=== PATIENT | male | born 1995 | race Caucasian/White ===

== ENCOUNTER 2016-12-07 20:18 | Emergency (ER) | payer OTHER ==
[~2016-12-07] VITALS: Wt 114.5 kg
[2016-12-07] MEDS ORDERED: ONDANSETRON 4 MG INJ IV STA (21:03)
[2016-12-07] MEDS ORDERED: HYDROmorphONE 1 MG/ML SYG IV STA (21:03)
[2016-12-07] MEDS ORDERED: KETAMINE 500 MG INJ IV STA ×2 (21:03→21:48)
[2016-12-07] MEDS ORDERED: PROPOFOL 200 MG INJ IV STA ×2 (21:03→21:48)
--- NOTE | 2016-12-07 22:13 | ERD ---
ER Documentation Chief Complaint Date/Time DATE: 12/07/16 TIME: 22:09 Chief Complaint Pt injured Left arm Possible dislocation HPI 21-year-old male who states that he injured his left shoulder approximately 1-2 weeks ago. While playing basketball today he states that he injured his arm and feels like it might be dislocated. He describes moderate pain to left shoulder with limited range of motion. He is left-hand dominant. ROS All systems reviewed and are negative except as per history of present illness. Medications Home Meds Active Scripts Ondansetron (Ondansetron Odt) 4 Mg Tab.rapdis, 4 MG PO Q6H Y for NAUSEA AND/OR VOMITING, #10 TAB Prov:MARY ALICE NAZARIO MD 12/07/16 Ibuprofen* (Motrin*) 800 Mg Tab, 800 MG PO Q6H Y for PAIN AND OR ELEVATED TEMP, #30 TAB Prov:MARY ALICE NAZARIO MD 12/07/16 Hydrocodone/Acetaminophen (Thompson 10-325 Tablet) 1 Each Tablet, 1 TAB PO Q6H Y for PAIN, #7 TAB Prov:MARY ALICE NAZARIO MD 12/07/16 Reported Medications [None] No Conflict Check 03/28/10 Allergies Allergies: Coded Allergies: No Known Drug Allergies (Verified Allergy, Mild, 03/28/10) PMhx/Soc Medical and Surgical Hx: pt denies Medical Hx, pt denies Surgical Hx History of Surgery: No Anesthesia Reaction: No Hx Neurological Disorder: No Hx Respiratory Disorders: No Hx Cardiac Disorders: No Hx Psychiatric Problems: No Hx Miscellaneous Medical Probl: No Hx Alcohol Use: No Hx Substance Use: No Hx Tobacco Use: No Smoking Status: Never smoker FmHx Family History: No diabetes Physical Exam Vitals Vital Signs Date Time Temp Pulse Resp B/P Pulse Ox O2 Delivery O2 Flow Rate FiO2 12/07/16 21:48 2 12/07/16 21:20 100 4.0 12/07/16 20:48 99.9 88 20 160/90 100 Physical Exam General: Well developed, well nourished, no acute distress Head: Normocephalic, atraumatic. Eyes: Pupils equally reactive, EOM intact ENT: Moist mucous membranes Neck: Supple, no lymphadenopathy Respiratory: Lungs clear bilaterally, no distress Cardiovascular: RRR, no murmurs, rubs, or gallops Abdominal: Soft, non-tender, non-distended, no peritoneal signs : Deferred MSK: Squaring of the left shoulder. Limited range of motion secondary to pain. 2+ radial and ulnar pulses. Radial, median, ulnar, axillary nerves are intact. Neurologic: Alert and oriented, moving all extremities, normal speech, no focal weakness, no cerebellar signs Skin: No rash Psych: Normal mood Results 24 hrs Current Medications Medications (Trade) Dose Ordered Sig/Macie Route PRN Reason Start Time Stop Time Status Last Admin Dose Admin Ketamine HCl (Ketalar) 55 mg ONCE STAT IV 12/07/16 21:03 12/07/16 21:06 DC Propofol (Diprivan) 55 mg ONCE STAT IV 12/07/16 21:03 12/07/16 21:06 DC Hydromorphone HCl (Dilaudid) 0.5 mg ONCE STAT IV 12/07/16 21:03 12/07/16 21:06 DC 12/07/16 21:20 Ondansetron HCl (Zofran Inj) 4 mg ONCE STAT IV 12/07/16 21:03 12/07/16 21:06 DC 12/07/16 21:20 Ketamine HCl (Ketalar) 40 mg ONCE STAT IV 12/07/16 21:48 12/07/16 21:50 DC Propofol (Diprivan) 40 mg ONCE STAT IV 12/07/16 21:48 12/07/16 21:50 DC Procedures/MDM EKG, MONITORS, & DIAGNOSTIC IMAGING: X-ray left shoulder: I reviewed and interpreted multiple views of the x-ray Bones: Anterior dislocation of the left shoulder Soft tissue: No evidence of foreign body X-ray left shoulder postreduction: I reviewed and interpreted multiple views of the x-ray Bones: Reduction of the prior anterior dislocation of the left shoulder, no fractures Soft tissue: No evidence of foreign body PROCEDURES: Procedural sedation note: The patient and/or family member was consented prior to procedure and understands the risks, benefits, alternatives. A document was signed and placed in the chart. ASA class: 1 Mallampati Score: 1 N.p.o. status: Greater than 5 hours Indication: Left shoulder dislocation Medications: Ketamine a total of 95 mg, Propofol a total of 95 mg, initial pressure 55 mg of each, gradual titration of another 20 mg of each and then another 20 mg of each. Time out was performed. Emergency airway equipment was placed to the patient's bedside. The patient was placed on supplemental oxygen. Respiratory therapy was available. The patient was placed on a clinical research monitor. The patient tolerated sedation well with no significant adverse events and no significant desaturations. I spent greater than 15 minutes of bedside time with this patient during sedation. Status post sedation the patient was arousable, protecting their airway, and well appearing. Closed reduction: The patient and/or family members were verbally consented for the procedure understanding the risks, benefits, alternatives. The document was signed and placed in the chart. Time out was performed. Indication: Left shoulder dislocation Location: Left shoulder Technique: Multiple techniques were used including downward traction and external rotation, traction and countertraction, scapular manipulation. The patient continued to have intermittent reduction in subluxation and dislocation. It appears that the anterior portion of the glenohumeral joint may be disrupted with ligamentous instability. Neurovascular exam: The patient was neurovascularly intact distal to the injury both prior to and status post closed reduction The patient had improvement in anatomic alignment, tolerated the procedure well without complications. MEDICAL DECISION MAKING: The patient presents with dislocation of left shoulder. He states that he injured his shoulder approximately 1-2 weeks ago but he injured it worse today while playing basketball. ER COURSE: The patient had a complicated reduction process. The patient required multiple attempts and it appears that there is instability to the anterior portion of the glenohumeral joint. This is possibly consistent with a capsular rupture. At this time it appears that the patient's shoulder is reduced, however unstable. I would anticipate multiple subluxations and dislocations and reductions with minimal movement. The patient will likely require surgical intervention. Given that he is neurovascularly intact I believe nonemergent outpatient follow-up with orthopedic surgery in the next several days would be most appropriate. I advised the patient the need to follow-up as soon as possible and return for any worsening symptoms or difficulty in care. I kept the patient and/or family informed of laboratory and diagnostic imaging results throughout the emergency room course. DISPOSITION PLAN: We discussed follow up with the patient's primary care doctor within 24 to 48 hours as needed. We also discussed return to the emergency room for worsening symptoms or worsening condition. Outpatient referral: Orthopedic surgery Discharge Medications: Thompson, Zofran, Motrin We discussed the use of narcotics including avoidance of operating heavy machinery and driving as well as its addictive properties. Departure Diagnosis: Primary Impression: Dislocation of left shoulder joint Encounter type: initial encounter Qualified Code: S43.005A - Dislocation of left shoulder joint, initial encounter Condition: Stable MARY ALICE NAZARIO MD December 07, 2016 22:13
[2016-12-07] MEDS ORDERED: HYDR-902 PO (22:20)
[2016-12-07] MEDS ORDERED: ONDA4TAB14 PO (22:20)
[2016-12-07] MEDS ORDERED: IBUP800T25 PO (22:20)
[2016-12-07 22:28] VITALS: BP 139/87; PULSE 96; RESP 18; TEMP 98.9
--- NOTE | 2016-12-07 22:49 | RADRPT ---
PROCEDURE: XR Shoulder. CLINICAL INDICATION: Dislocation, status post reduction. TECHNIQUE: Two views of the left shoulder. COMPARISON: None available. FINDINGS: The previously noted glenohumeral dislocation has been reduced. No fracture is identified. The ilsa coclavicular interval is normal. The joint spaces are preserved. There are no periarticular calcif ications. The visualized lung is clear. IMPRESSION: 1. Status post reduction of a glenohumeral dislocation. 2. No fracture. RPTAT: HTAR .Kiet Peguero MD, Date Time Electronically viewed and signed by .Kiet Peguero MD, on 12/07/2016 22:49 .R/
--- NOTE | 2016-12-07 23:56 | RADRPT ---
PROCEDURE: XR Shoulder. CLINICAL INDICATION: Left shoulder pain. TECHNIQUE: Two views of the left shoulder. COMPARISON: None available. FINDINGS: There is anterior dislocation of the humeral head. No fracture is identified. The coracoclavicular interval is normal. The joint spaces are preserved. There are no periarticular calcifications. T he visualized lung is clear. IMPRESSION: 1. Anterior dislocation of the humeral head. RPTAT: HTAR .Kiet Peguero MD, MD Date Time Electronically viewed and signed by .Kiet Peguero MD, on 12/07/2016 23:55 .R/
== END 2016-12-07 22:53 | disposition home or self-care (01) ==
LOC: E/R 20:18
DX: S43.015A Anterior dislocation of left humerus, initial encounter (principal); X58.XXXA Exposure to other specified factors, initial encounter; Y92.9 Unspecified place or not applicable
CPT/HCPCS: 23650; 73030; J1170; J2405; Z7610; 96374; 96375

== ENCOUNTER 2017-03-08 22:26 | Emergency (ER) | payer OTHER ==
[~2017-03-08] VITALS: Ht 182.9 cm; Wt 114.5 kg
[~2017-03-08 22:26] MED LIST: HYDR-902 PO; IBUP800T25 PO; ONDA4TAB14 PO
[2017-03-08 22:41] VITALS: Ht 182.9 cm; Wt 114.5 kg
[2017-03-08 23:34] VITALS: BP 144/75; PULSE 76; RESP 16; TEMP 98.6
--- NOTE | 2017-03-09 03:12 | ERD ---
ER Documentation Chief Complaint Date/Time DATE: 03/09/17 TIME: 03:07 Chief Complaint left shoulder pain, poss dislocation. hx of dislocation 2 months ago HPI 21-year-old man complains of left shoulder dislocation while laying prone at home watching TV. He states he moved suddenly and dislocated the left shoulder. This is his second dislocation over the last year. First time occurred while he was playing basketball. He denies paresis or paresthesias, no chest pain or shortness of breath, no direct trauma, no headache or blurry vision. ROS All systems reviewed and are negative except as per history of present illness. Medications Home Meds Active Scripts Ondansetron (Ondansetron Odt) 4 Mg Tab.rapdis, 4 MG PO Q6H Y for NAUSEA AND/OR VOMITING, #10 TAB Prov:MARY ALICE NAZARIO MD 12/07/16 Ibuprofen* (Motrin*) 800 Mg Tab, 800 MG PO Q6H Y for PAIN AND OR ELEVATED TEMP, #30 TAB Prov:MARY ALICE NAZARIO MD 12/07/16 Hydrocodone/Acetaminophen ([place] 10-325 Tablet) 1 Each Tablet, 1 TAB PO Q6H Y for PAIN, #7 TAB Prov:MARY ALICE NAZARIO MD 12/07/16 Reported Medications [None] No Conflict Check 03/28/10 Allergies Allergies: Coded Allergies: No Known Drug Allergies (Verified Allergy, Mild, 03/08/17) PMhx/Soc Anxiety History of Surgery: No Anesthesia Reaction: No Hx Neurological Disorder: No Hx Respiratory Disorders: No Hx Cardiac Disorders: No Hx Psychiatric Problems: No Hx Miscellaneous Medical Probl: No Hx Alcohol Use: No Hx Substance Use: No Hx Tobacco Use: No FmHx Family History: No diabetes Physical Exam Vitals Vital Signs Date Time Temp Pulse Resp B/P Pulse Ox O2 Delivery O2 Flow Rate FiO2 03/08/17 23:34 98.6 76 16 144/75 100 Room Air 03/08/17 23:00 98.3 82 18 143/86 98 Room Air 03/08/17 22:41 99.8 82 20 142/91 100 Physical Exam GENERAL: Well-developed, well-nourished, well-hydrated, in no apparent distress , looks nontoxic in appearance HEENT: Moist mucous membranes, pink conjunctiva, no cervical spine tenderness or step-off deformities, no goiter, no jaundice or icterus, extraocular movements intact without pain. No submandibular induration, and no pharyngeal erythema NEURO: Alert and oriented 3, cranial nerves II through XII intact bilaterally, pupils equal round reactive to light, no focal deficits or facial asymmetry, sensation intact distally Strength 5/5 in upper and lower extremities bilaterally CARDIAC: Regular rate and rhythm, no murmurs rubs or gallops LUNGS: Clear bilaterally no wheezing crackles or stridor ABDOMEN: Soft nontender, no guarding, no rigidity, no rebound, no psoas sign no obturator sign. Normoactive bowel sounds SKIN: Warm and dry to touch, no abrasions, contusions, or hematomas, no lacerations, no ecchymosis, no target lesions, and without ulcers EXTREMITIES: No clubbing cyanosis or edema, calves are bilaterally symmetrical, no Homans sign, no popliteal cord sign. Distal pulses equal and bilateral PSYCH: Normal affect without agitation or irritability Procedures/MDM Patient's shoulder was examined by, there appears to be a step-off deformity at the left glenohumeral joint, distal pulses equal bilateral, sensation in the left axillary, median, ulnar, radial nerves are intact and equal bilaterally. Procedural Sedation was not required. I reduced the left shoulder manually at the bedside without the need for analgesics or sedatives. Greater than 25 minutes of face to face time included explanation, manual reduction, and splinting Shoulder Reduction by me: Anesthesia: Not require Location: Left glenohumeral joint Technique: External rotation with abduction Results: Confucianist of normal anatomic positioning Compl: Neurovascularly intact post procedure. Shoulder immobilizer was placed to the left upper extremity. Post splint placement assessment: Neurovascularly intact post sling placement with good fit. Instructions were provided to the patient and his brother who was at the bedside. Patient feels much better at this time, and vital signs are normal, symptoms have improved. I did give strict instructions to return to the ED if symptoms continue or worsen, patient will otherwise follow-up with primary care physician. Patient understood instructions and agreed to plan. Disclaimer: Inadvertent spelling and grammatical errors are likely due to EHR/ dictation software use and do not reflect on the overall quality of patient care. Also, please note that the electronic time recorded on this note does not necessarily reflect the actual time of the patient encounter. Departure Diagnosis: Primary Impression: Shoulder dislocation Encounter type: initial encounter Laterality: left Qualified Code: S43.005A - Shoulder dislocation, left, initial encounter Condition: Good Patient Instructions: Dislocation, Other Joint CHICHI LEROY MD Mar 09, 2017 03:12
== END 2017-03-08 23:36 | disposition home or self-care (01) ==
LOC: E/R 22:26
DX: S43.005A Unspecified dislocation of left shoulder joint, initial encounter (principal); X50.9XXA Other and unspecified overexertion or strenuous movements or postures, initial encounter; Y92.9 Unspecified place or not applicable
CPT/HCPCS: 23650; Z7502